=== PATIENT | male | born 1945 | race African-American/Black ===

== ENCOUNTER 2018-07-07 17:12 | Inpatient (IN) | payer MEDICARE, OTHER ==
[~2018-07-07] VITALS: Ht 172.7 cm; Wt 91.2 kg
[~2018-07-07 17:12] MED LIST: ASPI-1158 PO; CITA40TA11 PO; GABA-529 PO; HYDR12.518 PO; HYDR1TAB93; OMEP20CA10 PO; PROC5TAB12 PO; QUET25TA34 PO; SERT50TA12 PO; SIMV10TA2 PO
[2018-07-07] MEDS ORDERED: MORPHINE SULFATE 4 MG/ML CPJ (NOT FOR IM USE) IV STA (17:50)
[2018-07-07] MEDS ORDERED: ONDANSETRON HCL 4MG/2ML INJ IV STA (17:50)
[2018-07-07 19:31] LABS: BASOPHILS % 0.4 % (0.0-2.0); EOSINOPHILS % 0.6 % (0.0-5.0); HEMATOCRIT. 40.7 % (42.0-52.0); HEMOGLOBIN. 13.1 g/dL (14.0-18.0); LYMPHOCYTES % 18.2 % (20.0-50.0); MEAN CORPUSCULAR HEMOGLOBIN 26.8 pg (28.0-32.0); MEAN CORPUSCULAR VOLUME 83.3 fL (80.0-94.0); MEAN PLATELET VOLUME 8.1 fl (7.4-10.4); MONOCYTES % 5.9 % (2.0-8.0); NEUTROPHILS % 74.9 % (40.0-76.0); PLATELET 237 x1000/uL (130-400); RED BLOOD CELL COUNT 4.89 mill/uL (4.7-6.1)
[2018-07-07 19:36] LABS: CHLORIDE 101 mEq/L (98-107)
[2018-07-07 19:38] LABS: ETHANOL BLOOD < 10 mg/dL
[2018-07-07 19:50] LABS: CREATINE KINASE 121 IU/L (39-308)
[2018-07-07 19:57] LABS: CARBAMAZEPINE < 0.5 ug/mL (4-12); PHENOBARBITAL < 2.1 ug/mL (15.0-40.0)
[2018-07-07 20:03] LABS: CLARITY URINE CLEAR (CLEAR); COLOR URINE YELLOW (YELLOW); KETONES URINE 1+ (NEGATIVE); LEUKOCYTE ESTERASE URINE NEGATIVE (NEGATIVE); NITRITE URINE NEGATIVE (NEGATIVE); OCCULT BLOOD URINE NEGATIVE (NEGATIVE); PH URINE 8.5 (4.5-8.0); PROTEIN URINE NEGATIVE (NEGATIVE); SPECIFIC GRAVITY URINE 1.016 (1.005-1.030); UROBILINOGEN URINE 0.2 E.U./dL (0.2-1.0)
[2018-07-07 20:15] LABS: *AMPHETAMINES SCREEN URINE NEGATIVE (NEGATIVE); *BARBITURATES SCREEN URINE NEGATIVE (NEGATIVE); *BENZODIAZEPINES SCREEN URINE NEGATIVE (NEGATIVE); *COCAINE SCREEN URINE NEGATIVE (NEGATIVE)
[2018-07-07 20:16] LABS: CANNABINOID URINE SCREEN NEGATIVE (NEGATIVE); METHADONE URINE SCREEN NEGATIVE (NEGATIVE); OPIATES URINE SCREEN PRESUMTIVE POSITIVE (NEGATIVE); PHENCYCLIDINE URINE SCREEN NEGATIVE (NEGATIVE)
[2018-07-07 21:00] VITALS: BP 151/89
[2018-07-07] MEDS ORDERED: MAGNESIUM/ALUMINUM HYDROXIDE/SIMETHICONE 30ML UDC PO PRN (22:00)
[2018-07-07] MEDS ORDERED: ONDANSETRON HCL 4MG/2ML INJ IV PRN (22:00)
[2018-07-07] MEDS ORDERED: DOCUSATE SODIUM 100MG CAPSULE PO PRN (22:00)
[2018-07-07] MEDS ORDERED: MORPHINE SULFATE 4 MG/ML CPJ (NOT FOR IM USE) IV PRN (22:00)
[2018-07-07] MEDS ORDERED: HYDROCODONE/ACETAMINOPHEN 5/325MG TABLET PO PRN (22:00)
[2018-07-07] MEDS ORDERED: CLONIDINE 0.1MG TABLET PO PRN (22:00)
[2018-07-07] MEDS ORDERED: ACETAMINOPHEN 325MG TABLET PO PRN (22:00)
[2018-07-08] VITALS: BP 162/84
[2018-07-08 04:00] VITALS: BP 147/85
[2018-07-08 06:19] LABS: BASOPHILS % 0.6 % (0.0-2.0); EOSINOPHILS % 0.6 % (0.0-5.0); HEMATOCRIT. 38.8 % (42.0-52.0); HEMOGLOBIN. 12.7 g/dL (14.0-18.0); LYMPHOCYTES % 28.8 % (20.0-50.0); MEAN CORPUSCULAR HEMOGLOBIN 26.9 pg (28.0-32.0); MEAN CORPUSCULAR VOLUME 82.2 fL (80.0-94.0); MONOCYTES % 9.3 % (2.0-8.0); NEUTROPHILS % 60.7 % (40.0-76.0); PLATELET 219 x1000/uL (130-400); RED BLOOD CELL COUNT 4.72 mill/uL (4.7-6.1); RED CELL DISTRIBUTION WIDTH 15.6 % (11.6-14.6)
[2018-07-08 07:11] LABS: CHLORIDE 101 mEq/L (98-107)
[2018-07-08 07:29] LABS: HDL CHOLESTEROL 60 mg/dL (40-59); LDL CHOLESTEROL 103 mg/dL (5-100)
[2018-07-08 08:00] VITALS: BP 132/72
[2018-07-08] MEDS: ASPIRIN 81MG EC TABLET PO SCH (09:11)
[2018-07-08] MEDS: AMLODIPINE 10MG TABLET PO SCH (09:12)
[2018-07-08] MEDS: ENOXAPARIN 40MG/0.4ML SYR SUBCUT SCH (09:13)
[2018-07-08] MEDS: OMEPRAZOLE 20MG CAPSULE EXTENDED RELEASE PO SCH (11:55)
[2018-07-08] MEDS: CITALOPRAM HYDROBROMIDE 40MG TABLET PO SCH (11:55)
[2018-07-08] MEDS: QUETIAPINE FUMARATE 25MG TABLET PO SCH (11:56)
[2018-07-08 11:58] VITALS: BP 122/69
[2018-07-08 20:00] VITALS: BP 135/63
[2018-07-08] MEDS ORDERED: ATORVASTATIN CALCIUM 10MG TABLET PO SCH (21:00)
[2018-07-09] VITALS: BP 110/74
[2018-07-09 04:00] VITALS: BP 135/75
[2018-07-09] MEDS: ASPIRIN 81MG EC TABLET PO SCH (08:41)
[2018-07-09] MEDS: CITALOPRAM HYDROBROMIDE 40MG TABLET PO SCH (08:41)
[2018-07-09] MEDS: OMEPRAZOLE 20MG CAPSULE EXTENDED RELEASE PO SCH (08:41)
[2018-07-09] MEDS: ENOXAPARIN 40MG/0.4ML SYR SUBCUT SCH (08:42)
[2018-07-09] MEDS: AMLODIPINE 10MG TABLET PO SCH (08:42)
[2018-07-09] MEDS: QUETIAPINE FUMARATE 25MG TABLET PO SCH (08:42)
[2018-07-09] MEDS ORDERED: GABAPENTIN 100MG CAPSULE PO SCH (09:00)
[2018-07-09] MEDS ORDERED: SERTRALINE HCL 50MG TABLET PO SCH (09:00)
[2018-07-10] MEDS ORDERED: FAMOTIDINE 20MG TABLET PO SCH (09:00)
== END 2018-07-09 18:47 | disposition home or self-care (01) | DRG 305 ==
LOC: EDBEDREQ 17:54 → EDBEDREQTM 19:56 → EDBEDREQ 19:56 → ENRESERV 20:03 → ER 21:37 → 7WST 22:34
PROVIDERS: ADMIT Hospitalist; ATTEND Hospitalist
DX: I16.0 Hypertensive urgency (principal); I69.351 Hemiplegia and hemiparesis following cerebral infarction affecting right dominant side; E11.9 Type 2 diabetes mellitus without complications; E78.00 Pure hypercholesterolemia, unspecified; F02.80 Dementia in other diseases classified elsewhere, unspecified severity, without behavioral disturbance, psychotic disturbance, mood disturbance, and anxiety; G30.9 Alzheimer's disease, unspecified; I10 Essential (primary) hypertension; K21.9 Gastro-esophageal reflux disease without esophagitis; R51 Headache; Z79.4 Long term (current) use of insulin
CPT/HCPCS: 36415; 71045; 80061; 80156; 80165; 80184; 80185; 80305; 82550; 82962; 83880; 84443; 84484; 93005; 93970; 96374; 96375; 99285; G0482; J1650; J2270; J2405